=== PATIENT | female | born 1980 | race Caucasian/White ===

== ENCOUNTER 2021-05-18 10:47 | Outpatient (REF) | payer BC, MEDICAID, SELFPAY ==
--- NOTE | ~2021-05-18 | XR_ITS ---
EXAMINATION: XR FEMUR, LEFT CLINICAL INFORMATION: Displaced intertrochanteric fracture of left femur COMPARISON: None TECHNIQUE: AP and lateral views of the left femur were obtained. FINDINGS: There is a left femoral intramedullary nail and fixative screw in place with posttraumatic changes of the left proximal femur about the level of the trochanters. There is a presumed fragment of the greater trochanter located immediately cranial to the superior margin of the intramedullary nail. No new fractures are identified. The hip is in alignment. Soft tissues are otherwise unremarkable. XR/XR femur LT 2V IMPRESSION: Postsurgical changes relating to prior fixation of a left intertrochanteric femur fracture. No acute fracture identified.
--- NOTE | ~2021-05-18 | XR_ITS ---
EXAMINATION: XR PELVIS CLINICAL INFORMATION: Pain unspecified hip COMPARISON: Left femur radiographs obtained on the same day TECHNIQUE: AP view of the pelvis. FINDINGS: There are posttraumatic changes/deformity of the left proximal femur with soft tissue calcification medial to the lesser trochanter and a presumed fragment of the greater trochanter immediately cranial to the superior margin of the intramedullary nail. There is a tiny focus of calcification along the lateral superior margin of the left acetabulum. The hips are normally located. Pubic symphysis and sacroiliac joints are in alignment. Pelvic ring is maintained. No acute fractures identified. No other abnormal soft tissue calcification. XR/XR pelvis 1-2V IMPRESSION: Posttraumatic deformity/changes of the left proximal femur post prior fixation. No acute abnormality
== END 2021-05-18 10:48 | disposition home or self-care (01) ==
LOC: HO.HOSX 10:47
PROVIDERS: Visit Provider Orthopaedic Surgery
DX: M25.552 Pain in left hip (principal); S72.142A Displaced intertrochanteric fracture of left femur, initial encounter for closed fracture; X58.XXXA Exposure to other specified factors, initial encounter; Y93.9 Activity, unspecified; Y92.9 Unspecified place or not applicable; Y99.8 Other external cause status; M21.751 Unequal limb length (acquired), right femur; R26.9 Unspecified abnormalities of gait and mobility; Z88.8 Allergy status to other drugs, medicaments and biological substances; Z79.899 Other long term (current) drug therapy
CPT/HCPCS: 72170; 73552; 99202

== ENCOUNTER 2021-05-31 12:16 | Day surgery (SDC) | payer MEDICAID, SELFPAY ==
--- NOTE | 2021-05-30 09:07 | P.CONAN_ITS ---
Documented by User: Sherie Fletcher NP 05/30/21 09:08 HPI - Anesthesia Eval Consult details Narrative: 40yo F for Left Removal Orthopedic Hardware,femur *Multiple Allergies* PMFSH Active Problems Active Problems: All Active Problems (Updated 05/18/21 @ 11:07 by Omar Pizano MD) Fracture, intertrochanteric, left femur (Acute) Past Medical History Medical History (Updated 05/18/21 @ 11:07 by Omar Pizano MD) Femur fracture, right Social History Social History (Updated 05/18/21 @ 11:05 by Yessenia Butterfield RN) Patient Tobacco Use Status: Current everyday Tobacco user Tobacco use type: Cigarette Cigarette Packs Per Day: 0.5 Cigarettes Per Day: 10.0 Use of substances other than those prescribed or required for medical reasons: No Are you DNR?: No Advance Directives: No Advance Directives Information Provided: Yes Recently lost weight without trying: Yes How much weight loss: 2-13 pounds Current occupational status: unemployed Current occupation: Right handed Meds Allergies Allergy/AdvReac Type Severity Reaction Status Date / Time topiramate [From TOPAMAX] Allergy Severe Anaphylaxis Verified 05/31/21 13:10 hydrocodone [From VICODIN] Allergy Intermediate RASH Verified 05/31/21 13:08 oxycodone [OXYCODONE] Allergy Intermediate RASH Verified 05/31/21 13:10 barium sulfate AdvReac Mild mood Verified 05/31/21 13:10 disturbance varenicline [VARENICLINE] AdvReac Mild unk, mood Verified 05/31/21 13:10 disturbance Home Medications Medication Instructions Recorded Confirmed Last Taken Type citalopram 40 mg tablet (Celexa) 40 mg PO DAILY 05/18/21 05/18/21 Unknown History lorazepam 1 mg tablet (Ativan) 1 mg PO TID PRN 05/18/21 05/18/21 05/31/21 08:30 History melatonin 5 mg capsule mg PO DAILY cap 05/18/21 05/18/21 Unknown History Exam Exam Date and Time: May 30, [id number] Assessment and Plan Assessment Anesthesia Assessment: Chart Reviewed Documented by User: Milton Rivera MD 05/31/21 16:39 HPI - Anesthesia Eval Consult details Narrative: 40yo F for Left Removal Orthopedic Hardware,femur Charcot Ankita tooth disease , tingling , burning B/L LE , tremor UE RBBB *Multiple Allergies* [facility] Past Medical History Medical History (Updated 05/18/21 @ 11:07 by Omar Pizano MD) Femur fracture, right Family History Family history of problems with anesthesia: No Surgical History History of Problems with Anesthesia: No Social History Social History (Updated 05/18/21 @ 11:05 by Yessenia Butterfield RN) Patient Tobacco Use Status: Current everyday Tobacco user Tobacco use type: Cigarette Cigarette Packs Per Day: 0.5 Cigarettes Per Day: 10.0 Use of substances other than those prescribed or required for medical reasons: No Are you DNR?: No Advance Directives: No Advance Directives Information Provided: Yes Recently lost weight without trying: Yes How much weight loss: 2-13 pounds Current occupational status: unemployed Current occupation: Right handed Meds Allergies Allergy/AdvReac Type Severity Reaction Status Date / Time topiramate [From TOPAMAX] Allergy Severe Anaphylaxis Verified 05/31/21 13:10 hydrocodone [From VICODIN] Allergy Intermediate RASH Verified 05/31/21 13:08 oxycodone [OXYCODONE] Allergy Intermediate RASH Verified 05/31/21 13:10 barium sulfate AdvReac Mild mood Verified 05/31/21 13:10 disturbance varenicline [VARENICLINE] AdvReac Mild unk, mood Verified 05/31/21 13:10 disturbance Home Medications Medication Instructions Recorded Confirmed Last Taken Type citalopram 40 mg tablet (Celexa) 40 mg PO DAILY 05/18/21 05/18/21 Unknown History lorazepam 1 mg tablet (Ativan) 1 mg PO TID PRN 05/18/21 05/18/21 05/31/21 08:30 History melatonin 5 mg capsule mg PO DAILY cap 05/18/21 05/18/21 Unknown History Exam Airway Mallampati Class: IV TM Dist: >3cm Neck ROM: Full Loose/Missing/Broken Teeth: Yes (Crowns ) Heart: rrr Lungs: bl breath sounds Assessment and Plan Assessment Anesthesia Assessment: Anesthesia Plan Discussed Final Anesthetic Review Family History of Problems with Anesthesia: No History of Problems with Anesthesia: No NPO: Yes ASA Class: II Final Preanesthetic Review: Meds/Allgs Chart Reviewed, Consent Obtained/Reviewed and Anes Risks/Benef Reviewed Patient Risk: Intermediate Procedure Risk: Intermediate Anesthetic Plan Anesthetic Plan: GA Disposition: Standard PACU
[2021-05-31] VITALS (8 sets, daily range): BP systolic 86–117; BP diastolic 47–71; PULSE 77–86; RESP 16–19; TEMP 36.8–36.9; O2SAT 97–100; BMI 22.4
--- NOTE | ~2021-05-31 | FL_ITS ---
EXAMINATION: XR FLUOROSCOPY WITH IMAGES CLINICAL INFORMATION: Intraoperative fluoroscopy and C-arm views COMPARISON: None. TECHNIQUE: Fluoroscopy performed by Dr. Omar Pizano. Fluoroscopy time: 0.3 minutes DAP: 0.113 mGycm2 Images: 4 FINDINGS: Intraoperative fluoroscopy and C-arm views for ORIF left femur. Please refer to operative note for procedural detail.
[2021-05-31 12:45] LABS: UPreg QC Valid YES; Urine Pregnancy NEGATIVE (NEGATIVE)
[2021-05-31] MEDS: Lactated Ringers 1,000 ML 100 ML IVCONT (13:32)
--- NOTE | 2021-05-31 16:08 | P.BOP_ITS ---
Brief Operative Note Date of Service: 05/31/21 Pre-op diagnosis: Retained orthopaedic hardware left femur Post-op diagnosis: same Procedure: Removal of Hardware left femur Surgeon: Omar Pizano MD Anesthesia: GETA and local Was an Professional Volleyball Player used for this Procedure?: Yes Professional Volleyball Player: Sofy Esposito Estimated blood loss (mL): 50 IV fluids (mL): 500 Pathology: none sent Condition: stable Disposition: PACU
[2021-05-31] MEDS: traMADoL HCL 50 MG TABLET 25 MG PO (17:10)
--- NOTE | 2021-05-31 17:15 | PC.NURSE ---
1710 MEDICATED FOR PAIN. PATIENT TAKING PO FLUIDS. PATIENT MEDICATED PO TRAMADOL FOR PAIN REFUSING IV NARCOTICS AT THIS TIME
--- NOTE | 2021-06-06 16:06 | W.PM.OPN ---
Operative Note Operative Note Date of Service: 06/06/21 Narrative: Date of Service: 05/31/21 Pre-op diagnosis: Retained orthopaedic hardware left femur Post-op diagnosis: same Procedure: Removal of Hardware left femur Surgeon: Omar Pizano MD Anesthesia: GETA and local Was an Conservation Scientist used for this Procedure?: Yes Conservation Scientist: Sofy Esposito Estimated blood loss (mL): 50 IV fluids (mL): 500 Pathology: none sent Condition: stable Disposition: PACU Patient was brought to the operating room and placed supine on the surgical table. She was prepped and draped in standard sterile fashion and a time out was called to identify proper site, proper procedure and IV antibiotics per weight were administered. I began by identifying the distal 2 interlocking screws. A skin incision was made through the prior incision and the screw heads were easily identified and to screws removed without difficulty. I then repeated this process for the hip screw and the set screw proximally. Again small incisions were made through the prior incisions and a set screw was loosened with a flexible screwdriver and the hip screw was removed with the appropriate regional tanker truck driver. Once this was done I used a Raz tree to thread the nail and then the nail was backslapped without difficulty. I then irrigated copiously and closed the wounds with an absorbable suture and kar. Patient was placed in sterile dressing extubated brought to recovery room in a stable condition there were no known complications.
== END 2021-05-31 18:20 | disposition home or self-care (01) ==
LOC: HO.SSS 12:16
PROVIDERS: Nurse Practitioner; PCP Internal Medicine; Visit Provider Orthopaedic Surgery
PROC: (CPT 20680; principal; 2021-05-31 14:20)
DX: T84.84XA Pain due to internal orthopedic prosthetic devices, implants and grafts, initial encounter (principal); G89.18 Other acute postprocedural pain; M25.552 Pain in left hip; R26.89 Other abnormalities of gait and mobility; Y79.3 Surgical instruments, materials and orthopedic devices (including sutures) associated with adverse incidents; Y92.9 Unspecified place or not applicable; M21.70 Unequal limb length (acquired), unspecified site; Z79.899 Other long term (current) drug therapy; Z88.8 Allergy status to other drugs, medicaments and biological substances
CPT/HCPCS: 20680; 81025; J0131; J0690; J1100; J1170; J2250; J2405; J3010

== ENCOUNTER → 2021-06-05 09:50 | Outpatient (BNVA) | payer MEDICAID, SELFPAY | PROVIDERS: Visit Provider Physician Assistant | DX: S72.142D Displaced intertrochanteric fracture of left femur, subsequent encounter for closed fracture with routine healing (principal) | CPT/HCPCS: 99212 ==

== ENCOUNTER 2021-06-29 10:00 | Outpatient (RCR) | payer MEDICAID, SELFPAY ==
--- NOTE | 2021-06-05 13:19 | MHC.PT.EP ---
[facility] [place] Office [place] Office [place] Office [address] Eileen Padilla [address] [phone] F: [phone] F: [phone] F: [phone] F: [phone] Physical Therapy Plan of Care Date of Evaluation: Date of Surgery: 05/31/21 Diagnosis: S/P LEFT FEMUR HARDWARE REMOVAL Assessment: 40 YO FEMALE REF TO PT S/P LEFT FEMUR HARDWARE REMOVAL ON 05/31/21 AT [facility] [place]. Pt PRESENTING W JAY AXILLARY CRUTCHES- SHE RESIDES IN A MOBILE HOME AND IS CURRENTLY UNEMPLOYED. SHE HAS A H/O CHARCOT YEMI TOOTH DISEASE. OBJECTIVELY: Pt HAS (+) WEAKNESS IN LEFT LE AND LUMBOPLEVIC REGION, LIMITED AROM LEFT LE, HEALING INCISION LEFT LAT THIGH, AND PAIN IN LEFT HIP/ THIGH. FUNCTIONALLY, Pt IS LIMITED W WALKING, FUNCT SQUAT, (+) UEs COMPENSATION W TRANSFERS/ DECR LEs USE, AND DIFFIC W STAIR MGMT. Pt IS MOTIVATED FOR PT AND SHE WOULD BENEFIT FROM PT TO ADDRESS THE ABOVE FINDINGS/ STRENGTHENING, PAIN MGMT, DEV SELF- SX MGMT STRATEGIES. Frequency and Duration: The patient will be seen 2 x WK x 6 WKS Short Term Goals: *Pt'S LEFT HIP/ THIGH PAIN DECR TO 2-3/10 IN 2 WKS *Pt DEMON IMPROVED TRANSFERS AND BED MOB TECH W REDUCTION OF COMPENSATORY UEs IN 3 WKS *Pt DEMON IMPROVED LEFT KNEE,HIP, AND JAY ANKLE DF AROM IN 3 WKS * Pt DEMON IMRPOVED GAIT MECH , PROGR 2 CRUTCHES-> 1 , TO W/O ON LEVEL AND STAIRS IN 3 WKS Flag Signaler Goals: Pt INDEP W HEP PROGRESSION AND SELF-SX MGMT STRATEGIES IN 8 WKS Pt RESUME REG ADLs EVIDENT W IMPROVED LEFI SCORE BY 8-10 POINTS (AT EVAL 18/80) IN 8 WKS Pt INCR LE STRENGTH BY 1 GRADE IN 8 WKS Treatment Plan: Modalities to reduce pain, spasms and effusion. Manual therapy to restore motion and function. Therapeutic exercise to improve strength and flexibility. Neuromuscular re-education for posture and balance. Therapeutic activities to return to functional activities of daily living. Electronically signed by: Sharon Dalton PT Please sign and return to therapist. Thank you for your referral.
--- NOTE | 2021-11-30 09:43 | MHC.PT.DC ---
[facility] [place] Office [place] Office [place] Office [address] Eileen Padilla [address] [phone] F: [phone] F: [phone] F: [phone] F: [phone] Physical Therapy Discharge Report Diagnosis: S/P LEFT FEMUR HARDWARE REMOVAL Date of Surgery: 05/31/21 Date of Evaluation: 06/05/21 Date of Discharge: 07/13/21 Treatments to Date: 3 Cancellations to Date: No Shows to Date: Discharge Status: Discharge Summary: Pt did elect to find a PT provider with shorter commute. 06/29/21: Pt in a lot of pain after last visit. We reduced activity level and discussed responses to activities in depth today. 06/20/21: maintains motivation. still requires cues for stairs and amb to reduce quad avoidance tendencies. 06/15: excellent yayo for activities, Pt has some swelling of lateral distal thigh; incision appears WNL though arturo pocket of swelling noted and medial thigh ecchymosis also noted; ed on monitoring changes, IP. 06/08/21: significant education on importance of avoiding TKE throughout stance phase to engage quad. this will be essential as we progress to 1 crutch. HEP updated. 40 YO FEMALE REF TO PT S/P LEFT FEMUR HARDWARE REMOVAL ON 05/31/21 AT [facility] [place]. Pt PRESENTING W JAY AXILLARY CRUTCHES- SHE RESIDES IN A MOBILE HOME AND IS CURRENTLY UNEMPLOYED. SHE HAS A H/O CHARCOT YEMI TOOTH DISEASE. OBJECTIVELY: Pt HAS (+) WEAKNESS IN LEFT LE AND LUMBOPLEVIC REGION, LIMITED AROM LEFT LE, HEALING INCISION LEFT LAT THIGH, AND PAIN IN LEFT HIP/ THIGH. FUNCTIONALLY, Pt IS LIMITED W WALKING, FUNCT SQUAT, (+) UEs COMPENSATION W TRANSFERS/ DECR LEs USE, AND DIFFIC W STAIR MGMT. Pt IS MOTIVATED FOR PT AND SHE WOULD BENEFIT FROM PT TO ADDRESS THE ABOVE FINDINGS/ STRENGTHENING, PAIN MGMT, DEV SELF- SX MGMT STRATEGIES. Electronically signed by: Jose M Pierre, PT Please sign and return to therapist. Thank you for your referral.
== END 2021-11-30 09:43 | disposition home or self-care (01) ==
LOC: HO.PTCHIC 10:00
PROVIDERS: PCP Internal Medicine; Visit Provider Physician Assistant
DX: S72.142A Displaced intertrochanteric fracture of left femur, initial encounter for closed fracture (principal)
CPT/HCPCS: 97110; 97112; 97140; 97162; 97530

== ENCOUNTER → 2021-11-06 08:51 | Outpatient (BNVA) | payer MEDICAID, SELFPAY | PROVIDERS: PCP Internal Medicine; Visit Provider Orthopaedic Surgery | DX: S72.142D Displaced intertrochanteric fracture of left femur, subsequent encounter for closed fracture with routine healing (principal); M25.562 Pain in left knee; R26.9 Unspecified abnormalities of gait and mobility; Z98.890 Other specified postprocedural states; X58.XXXD Exposure to other specified factors, subsequent encounter | CPT/HCPCS: 99212 ==

== ENCOUNTER 2024-11-24 15:35 | Emergency (ER) | payer MEDICAID, SELFPAY ==
[2024-11-24] VITALS (9 sets, daily range): BP systolic 102–127; BP diastolic 44–63; PULSE 63–81; RESP 11–18; TEMP 36.5–36.6; O2SAT 96–98; BMI 31.4
--- NOTE | ~2024-11-24 | XR_ITS ---
CLINICAL HISTORY: trauma Radiographs of the left ankle, 3 views, 4 images Comparison: None available Findings: There is no fracture or dislocation. The ankle mortise is congruent. No degenerative change. Soft tissue swelling. Impression: No fracture. This document has been electronically signed by: Trini Echevarria MD on 11/24/2024 20:30:25
--- NOTE | ~2024-11-24 | XR_ITS ---
CLINICAL HISTORY: trauma Radiographs of the pelvis and left hip, 3 views Comparison: None available Findings: No acute fracture or dislocation. Remote fracture of the left proximal femur with ghost tracts from previously removed hardware. Heterotopic ossification. Mild degenerative change. Soft tissue swelling. Impression: No acute fracture. This document has been electronically signed by: Trini Echevarria MD on 11/24/2024 20:31:44
--- NOTE | ~2024-11-24 | CT_ITS ---
CLINICAL HISTORY: trauma CT head without contrast Comparison: None available Findings: No acute hemorrhage. No extra-axial fluid collection. No hydrocephalus, mass-effect or herniation. Shah-white differentiation is maintained. White matter is within normal limits for age. No acute orbital pathology. No acute soft tissue abnormality. No fracture. The visualized paranasal sinuses are predominantly clear. The mastoid air cells are clear. Impression: No acute findings. This document has been electronically signed by: Trini Echevarria MD on 11/24/2024 20:50:21
--- NOTE | ~2024-11-24 | XR_ITS ---
CLINICAL HISTORY: syncope Chest Radiographs, 2 views Comparison: None available Findings: No cardiomegaly. Normal mediastinal contours. No pneumothorax. No opacity. No pleural effusion. Normal upper abdomen. No acute fracture. Impression: No acute findings. This document has been electronically signed by: Trini Echevarria MD on 11/24/2024 20:33:08
--- NOTE | 2024-11-24 16:08 | ED.SYNCOPE ---
HPI - Syncope General Chief Complaint: Syncope Stated Complaint: Syncope Time Seen by Provider: 11/24/24 18:25 Source: patient, RN notes reviewed and old records reviewed Mode of arrival: ambulatory Limitations: no limitations History of Present Illness ED Provider: Shea HPI narrative: 44-year-old female with a past medical history significant for hypotension, left hip fracture presents for evaluation after a fall. The patient was visiting her fiance who was admitted upstairs. She was walking to the cafeteria. She reports that the room was spinning around her and she fell to the ground. She is unsure if she lost consciousness but landed on her left side. She has pain to her left hip, left ankle. She reports some left-sided chest pain and shortness of breath She is a smoker and a social drinker but reports that she does not drink in excess. She does not believe that she hit her head and denies any current headache or neck pain The pain to her left hip is 8/10 and stabbing. She reports that immediately after her fall she was unable to bear weight on the left side Related Data Home Medications ?Medication ?Instructions ?Recorded ?Confirmed citalopram 40 mg tablet (Celexa) 40 mg PO DAILY 05/18/21 05/18/21 lorazepam 1 mg tablet (Ativan) 1 mg PO TID PRN Anxiety 05/18/21 05/18/21 melatonin 5 mg capsule mg PO DAILY 05/18/21 05/18/21 Previous Rx's ?Medication ?Instructions ?Recorded tramadol 50 mg tablet 50 mg PO Q8H PRN pain 7 days #21 05/31/21 tabs hydromorphone 2 mg tablet 2 mg PO Q8H PRN pain 7 days #21 06/05/21 (Dilaudid) tabs cefuroxime axetil 250 mg tablet 250 mg PO Q12H #10 tabs 11/24/24 Allergies Allergy/AdvReac Type Severity Reaction Status Date / Time topiramate (From TOPAMAX) Allergy Severe Anaphylaxis Verified 11/24/24 16:07 hydrocodone (From VICODIN) Allergy Intermediate RASH Verified 11/24/24 16:07 oxycodone (OXYCODONE) Allergy Intermediate RASH Verified 11/24/24 16:07 barium sulfate AdvReac Mild mood Verified 11/24/24 16:07 disturbance varenicline (VARENICLINE) AdvReac Mild unk, mood Verified 11/24/24 16:07 disturbance Review of Systems Constitutional: Constitutional: Denies chills, Denies fever(s) and Denies headache(s) Eyes: Eyes: Denies blurry vision ENT: Reports vertigo, Reports dizziness and Denies headache(s) Cardiovascular: Cardiovascular: Reports chest pain, Reports chest pain at rest, Reports syncope and Reports dyspnea Respiratory: Respiratory: Denies cough and Reports dyspnea Gastrointestinal: Gastrointestinal: Denies abdominal pain, Denies nausea and Denies vomiting Musculoskeletal: Musculoskeletal: Denies back pain Neurologic: Reports vertigo, Reports dizziness, Reports syncope and Denies headache(s) [facility] Past Medical History Medical History Femur fracture, right Social History Social History Patient Tobacco Use Status: Current everyday Tobacco user Tobacco use type: Cigarette Cigarette Packs Per Day: 0.5 Cigarettes Per Day: 10.0 Smoked in Last 30 Days: No Use of substances other than those prescribed or required for medical reasons: No Advance Directives: No Advance Directives Information Provided: No Current occupational status: unemployed Current occupation: Right handed Physical Exam Vital Signs: Vital Signs: Last Vital Signs Temp 97.8 F 11/24/24 22:27 Pulse 71 11/24/24 22:27 Resp 11 L 11/24/24 22:27 BP 120/53 L 11/24/24 22:27 Pulse Ox 97 11/24/24 22:27 O2 Del Method Room Air 11/24/24 22:27 BMI result Body Mass Index 31.4 Const: General: healthy appearing, comfortable, no acute distress, alert and awake Nutritional Appearance: well nourished Orientation/consciousness: patient oriented x3 HEENT: Head: Yes normocephalic and Yes atraumatic Eyes: Eyelids: Yes eyelids normal Conjunctivae: conjunctivae normal Sclerae: sclerae normal Corneas: corneas normal Pupils: Equal, round and reactive pupils present EOM: EOMs intact bilaterally Neck: Neck: Yes full ROM Resp: Effort & Inspection: normal respiratory effort, able to speak in complete sentences, no audible wheezes and not labored Auscultation: clear to auscultation bilaterally Cardio: Rate: regular rate Rhythm: regular rhythm GI: Inspection: No distended Palpation (GI): Soft to palpation, not firm, nontender, no guarding and not rigid Skin: General skin exam: no rashes or lesions noted and elasticity normal Neuro: General: patient oriented x3 Cranial nerves: Yes CN's II-XII intact bilaterally, Yes Equal, round and reactive pupils present and Yes Bilaterally intact EOM present Cognition (Neuro): normal cognition Motor exam (neuro): 5/5 motor strength present throughout Coordination: [id number] test normal Course Course Course Narrative: This is an RME: Additional HPI, ROS, PE not included below will be deferred to primary provider. RME assessment and note performed by: Jo Ann Martinez PA-C This is a 26-mwxr-gzr-female, with a hx of anxiety, panic attacks, depression, who presents to the ER with complaints of two episodes of syncope today. no etoh or drug use. Reports that she had some chest pain which started today while in the waiting room. hx of RBBB. Plan: Labs, EKG, further ER eval needed Reevaluation(s) Reevaluation #1: Patient's workup largely unremarkable, repeat troponin was negative, she rules out for ACS with this and her nonischemic EKG. A D-dimer was within normal limits, less likely pulmonary embolism. She has not had any arrhythmias while on the front desk monitor. The patient is not orthostatic, she reports feeling much better after fluids and meclizine. She has been able to ambulate so commode without significant pain. I offered her crutches and she declines. Imaging did not show any traumatic injury. She will be referred to follow up with the PCP Time: 22:04 Reevaluation #2: The patient's urinalysis did show positive leukocytes with 3+ bacteria, white blood cells in the urine. She does complain of some burning that started today. We will treat with cefuroxime 250 mg b.i.d. x5 days. Time: 22:41 Medications Administered Discontinued Medications Generic Name Dose Route Start Last Admin Trade Name Freq PRN Reason Stop Dose Admin Sodium Chloride 1,000 mls @ 999 mls/hr 11/24/24 19:15 11/24/24 21:47 Ns IV 11/24/24 20:15 Infused .Q1H1M FRANKIE Infusion Meclizine HCl 50 mg 11/24/24 19:09 11/24/24 19:31 Meclizine Hcl 25 Mg Tablet PO 11/24/24 19:10 50 mg ONCE ONE Administration Medical Decision Making Medical Decision Making [facility] Narrative: 44-year-old female with past medical history significant for hypotension and previous left hip fracture presents for evaluation after a fall and questionable syncopal episode. She reports getting dizzy and describes room spinning prior to her fall. She has a history of vertigo that seemed to improve when she started taking Ativan for anxiety. The patient reports increased stress due to the recent passing of her mother and her 's current admission for a seizure. She complains of left-sided chest pain, her EKG is nondiagnostic but does show a right bundle branch block which the patient is aware of in his not new. Plan for x-rays of the left hip, left ankle, chest x-ray due to the syncopal episode. We will get labs including troponin and a dental troponin. A D-dimer was ordered. She has no risk factors for DVT or PE. However she reports that she was brought up in the [facility] system and does not know her family history. Her neuro exam is benign, I am not concerned about a CVA. We will treat her dizziness as peripheral vertigo which she has a history of with fluids, meclizine. It did or orthostatic vital signs Differential Diagnosis Differential Diagnoses: The differential diagnosis associated with the presentation includes Syncope Near-syncope Orthostasis ACS less likely Cardiac arrhythmia PE Dehydration Hip fracture Lab Data [facility] Lab Attestation statement: I reviewed the patient's lab results. No leukocytosis or significant anemia. Normal platelet count. No significant electrolyte abnormalities warranting dimension. Initial troponin negative, the patient is not 11/24/24 16:49 11/24/24 16:49 Labs: Lab Results 11/24/24 11/24/24 11/24/24 Range/Units 16:49 19:21 21:48 WBC 6.8 (4.8-10.8) X10*3/uL RBC 3.66 L (4.20-5.50) X10*6/uL Hgb 12.6 (12.0-16.0) g/dl Hct 35.9 L (37.0-47.0) % MCV 98.1 H (80.0-98.0) fL MCH 34.4 H (27.0-33.0) pg MCHC 35.1 H (31.0-35.0) g/dl RDW 13.3 (11.0-16.0) % Plt Count 253 (160-400) X10*3/uL MPV 9.5 (9.4-12.3) fL Immature Gran % (Auto) 0.3 (0.0-0.4) % Neut % (Auto) 54.4 (45-73) % Lymph % (Auto) 35.4 (20-40) % [place] % (Auto) 5.9 (2-11) % Eos % (Auto) 3.1 (0-4) % Baso % (Auto) 0.9 (0-2) % Lymph # (Auto) 2.4 (1.2-4.9) X10*3/uL [place] # (Auto) 0.4 (0.1-1.2) X10*3/uL Eos # (Auto) 0.2 (0.0-0.4) X10*3/uL Baso # (Auto) 0.1 (0.0-0.2) X10*3/uL Abs Immat Gran (auto) 0.02 (0.00-0.03) X10*3/uL Absolute Neuts (auto) 3.7 (2.0-8.3) x10*3/uL Absolute Nucleated RBC 0.000 (0.0-0.012) X10*3/uL Nucleated RBC % (auto) 0.0 (0.0-0.2) /100WBC D-Dimer High Sensitivty 174 NG/ML Sodium 141 (135-145) mmol/L Potassium 4.0 (3.3-5.1) mmol/L Chloride 108 (96-108) mmol/L Carbon Dioxide 24 (22-29) mmol/L Anion Gap 13 (12-20) BUN 14 (9-16) mg/dL Creatinine 0.92 (0.5-1.4) mg/dL Estim Creat Clear Calc 73.9 Estimated GFR > 60 Random Glucose 107 (60-115) mg/dL Calcium 9.2 (8.4-10.2) mg/dL Magnesium 2.3 (1.6-2.6) mg/dL Total Bilirubin 0.2 (0.0-1.0) mg/dL Direct Bilirubin < 0.2 (0.0-0.5) mg/dL AST 41 H (5-31) U/L ALT 36 H (0-31) U/L Alkaline Phosphatase 100 (39-117) U/L Troponin I High Sens < 2.7 < 2.7 (<3.5-17.0) ng/L Total Protein 7.1 (6.5-8.0) g/dL Albumin 4.3 (3.5-5.0) g/dL Lipase 38 (8-78) U/L Beta HCG, Quant < 2 mIU/mL Urine Color Yellow Urine Appearance Clear Urine pH 6.0 (5.0-9.0) Ur Specific [place] >= 1.030 H (1.005-1.025) Urine Protein 30 (1+) H (Neg-Trace) mg/dL Urine Glucose (UA) Negative (Negative) mg/dL Urine Ketones 15 (Negative) mg/dL Urine Blood Large (3+) H (Negative) Urine Nitrite Negative (Negative) Ur Leukocyte Esterase Small (1+) H (Negative) Urine RBC 3-5 H (0-2) /HPF Urine WBC 11-20 H (0-5) /HPF Ur Squamous Epith Cells 3-5 (0-2) /HPF Urine Bacteria 3+ (None Seen) Hyaline Casts 0-2 (0-2) /LPF Independent Interpretation I performed an independent interpretation of an: EKG (Normal sinus rhythm with a rate of [address] segment elevations or depressions. Incomplete right bundle-branch block which was previously documented. Nondiagnostic EKG) Radiology Impression Discussion of test interpretation with radiology: I have reviewed the radiologist's reading. Radiologist Impression: Findings: No acute hemorrhage. No extra-axial fluid collection. No hydrocephalus, mass-effect or herniation. Shah-white differentiation is maintained. White matter is within normal limits for age. No acute orbital pathology. No acute soft tissue abnormality. No fracture. The visualized paranasal sinuses are predominantly clear. The mastoid air cells are clear. Impression: No acute findings. This document has been electronically signed by: Trini Echevarria MD on 11/24/2024 20:50:21 Findings: No cardiomegaly. Normal mediastinal contours. No pneumothorax. No opacity. No pleural effusion. Normal upper abdomen. No acute fracture. Impression: No acute findings. This document has been electronically signed by: Trini Echevarria MD on 11/24/2024 20:33:08 Findings: No acute fracture or dislocation. Remote fracture of the left proximal femur with ghost tracts from previously removed hardware. Heterotopic ossification. Mild degenerative change. Soft tissue swelling. Impression: No acute fracture. This document has been electronically signed by: Trini Echevarria MD on 11/24/2024 20:31:44 Findings: There is no fracture or dislocation. The ankle mortise is congruent. No degenerative change. Soft tissue swelling. Impression: No fracture. This document has been electronically signed by: Trini Echevarria MD on 11/24/2024 20:30:25 Discharge Plan Discharge Clinical Impression: Syncope, Urinary tract infection Patient Disposition: Home, Self-Care Instructions: Syncope (ED) Additional Instructions: Your workup in the ER today was reassuring. This includes your blood work, EKG, head CT and x-rays. There was no significant injury noted with the imaging. I do recommend that you follow up with your primary doctor. Use you have any further episodes of syncope or near-syncope you should see a hydraulic lift operator Prescriptions: New cefuroxime axetil 250 mg tablet 250 mg PO Q12H Qty: 10 0RF No Action tramadol 50 mg tablet 50 mg PO Q8H PRN (Reason: pain) 7 Days Qty: 21 0RF Rx Instructions: Partial Fill upon patient request hydromorphone [Dilaudid] 2 mg tablet 2 mg PO Q8H PRN (Reason: pain) 7 Days Qty: 21 0RF lorazepam [Ativan] 1 mg tablet 1 mg PO TID PRN (Reason: Anxiety) citalopram [Celexa] 40 mg tablet 40 mg PO DAILY melatonin 5 mg capsule PO DAILY Print Language: Greek
--- NOTE | 2024-11-24 16:10 | ECG_ITS ---
Test Reason : syncope Blood Pressure : */* mmHG Vent. Rate : 78 BPM Atrial Rate : 78 BPM P-R Int : 162 ms QRS Dur : 98 ms QT Int : 394 ms P-R-T Axes : 78 34 33 degrees QTcB Int : 449 ms Normal sinus rhythm Low voltage QRS Incomplete right bundle branch block Nonspecific T wave abnormality Abnormal ECG When compared with ECG of 08-Sep-2019 14:27, Nonspecific T wave abnormality now evident in Lateral leads Referred By: Jo Ann Martinez Electronically Signed By: CELESTE ROBINS
[2024-11-24 16:56] LABS: MANUAL DIFF FLAG NO
[2024-11-24 16:57] LABS: Hematocrit 35.9 % (37.0-47.0); Hemoglobin 12.6 g/dl (12.0-16.0); Imm Gran Abs Auto 0.02 X10*3/uL (0.00-0.03); Imm Gran Pct Auto 0.3 % (0.0-0.4); Lymphocytes Absolute Auto 2.4 X10*3/uL (1.2-4.9); Mean Corpuscular HGB Conc 35.1 g/dl (31.0-35.0); Mean Corpuscular Hemoglobin 34.4 pg (27.0-33.0); Mean Corpuscular Volume 98.1 fL (80.0-98.0); NRBC Abs Auto 0.000 X10*3/uL (0.0-0.012); NRBC Pct Auto 0.0 /100WBC (0.0-0.2); Platelet Count 253 X10*3/uL (160-400); Red Blood Count 3.66 X10*6/uL (4.20-5.50); White Blood Count 6.8 X10*3/uL (4.8-10.8)
[2024-11-24 17:20] LABS: Alanine Aminotransferase 36 U/L (0-31); Albumin Level 4.3 g/dL (3.5-5.0); Alkaline Phosphatase 100 U/L (39-117); Anion Gap 13 (12-20); Aspartate Amino Transferase 41 U/L (5-31); Blood Urea Nitrogen 14 mg/dL (9-16); Calcium 9.2 mg/dL (8.4-10.2); Carbon Dioxide 24 mmol/L (22-29); Chloride 108 mmol/L (96-108); Creatinine Clr Calc Pharmacy 73.9; Estimated Glomerular Filt Rate > 60; Lipase 38 U/L (8-78); Magnesium 2.3 mg/dL (1.6-2.6); Potassium 4.0 mmol/L (3.3-5.1); Sodium 141 mmol/L (135-145); Total Protein 7.1 g/dL (6.5-8.0)
[2024-11-24 17:22] LABS: Troponin-I High Sensitivity < 2.7 ng/L (<3.5-17.0)
--- OUTSIDE RECORDS SUMMARY | 2024-11-24 19:19 | XMS_ITS | Clinical Summary ---
Author Organization [facility] Address [address] [place] [address] Phone Care Team Providers Care Compo Caster Name Role Phone Renetta Valdez MD Primary Care Provider Allergies Active Allergy Reactions Criticality Noted Date Comments Oxycodone Hives 07/08/2017 Oxycodone-Acetaminophen 06/06/2018 Topiramate 10/21/2017 Burninig all over the face. Throat swelled. Could not breathe well. Varenicline 06/06/2018 intolerable side effects Medications LORazepam (ATIVAN) 1 mg tablet Take 1 tablet (1 mg total) by mouth 1 (one) time each day if needed. Active melatonin 5 mg tablet Take 1 tablet (5 mg total) by mouth at bedtime. 02/08/2024 Active mirtazapine (REMERON) 45 mg tablet Take 1 tablet (45 mg total) by mouth at bedtime. 02/07/2024 Active citalopram (CeleXA) 40 mg tablet Take 1 tablet (40 mg total) by mouth 1 (one) time each day. Active multivitamin tablet Take 1 tablet by mouth 1 (one) time each day. 90 tablet 03/11/2024 Active disulfiram (ANTABUSE) 250 mg tablet Take 1 tablet (250 mg total) by mouth 1 (one) time each day for 14 days. 14 each 05/12/2024 Active Active Problems Problem Noted Date Diagnosed Date Alcohol dependence with unco [place]plicated [place] [place] [facility] 03/11/2024 Hypomagnesemia 03/11/2024 Macrocytosis 03/11/2024 Chest wall pain 03/11/2024 Gastroenteritis 03/11/2024 Qrwdjbd-Mglqu-Biaok disease 03/11/2024 [place]ol[place] [place] [facility] [place] 03/09/2024 Surgical History Surgery Date Site/Laterality Comments SECTION PROCEDURE: HISTORICAL ; COMMENT: x2 Medical History Medical History Date Comments S/p left hip fracture 10/07/2018 DX:S/p lef t hip fracture; COMMENT: S/p ORIF ETOH abuse Family History Medical History Relation Name Comments Alcohol/Drug Father Heart attack Father Alcohol/Drug Mother Heart attack Paternal Grandfather Relation Name Status Comments Father Mother Paternal Grandfather Social History Tobacco Use Types Packs/Day Years Used Date Smoking Tobacco: Every Day Cigarettes Last attempted to quit: 01/08/2009 Smokeless Tobacco: Never Alcohol Use Standard Drinks/Week Comments Yes 4 (1 standard drink = 0.6 oz pur e alcohol) Housing Instability Answer Date Recorde d Are you worried that in the next 2 months you may not have stable housing? Yes 03/09/2024 Food Access & Nutrition Answer Date Rec orded Do you have access to a vari ety of food including fruits and vegetables? No 03/09/2024 Access to Healthcare Answer Date Record ed Within the last 3 months, ho w many times did you visit the emergency department for your medical care? 0 03/09/2024 Health Literacy Answer Date Recorded How often do you need to hav e someone help you when you read instructions, pamphlets, or other written material from your doctor or pharmacy? Never 03/09/2024 Caregiver: How often do you need to have someone help you when you read instructions, pamphlets, or other written material from your doctor or pharmacy? Not on file 03/09/2024 Financial Risk Answer Date Recorded How hard is it for you to pa y for the very basics like food, housing, medical care, and air conditioning / heating? Somewhat hard 03/09/2024 Transportation Answer Date Recorded Has the lack of transportati on kept you from meetings, work, or from getting things needed for daily living? Yes Has the lack of transportati on kept you from medical appointments or from getting medications? Yes 03/09/2024 Social Isolation Answer Date Recorded How often do you feel lonely or isolated from those around you? Sometimes 03/09/2024 Food Risk Answer Date Recorded Within the past 12 months we worried whether our food would run out before we got money to buy more. Sometimes true 024 Within the past 12 months th e food we bought just didn't last and we didn't have money to get more. Sometimes true 03/09/2024 Dependent Care Answer Date Recorded Do you need help finding or paying for care for your loved ones. For example, child welfare social worker or elderly care for an older adult? No 03/09/2024 Education Answer Date Recorded Do you think completing more education or training, like finishing a GED, going to college, or learning a trade, would be helpful for you? No 03/09/2024 Employment and Income Answer Date Recor ded During the last four weeks, have you been actively looking for work? No 03/09/2024 Living Situation Answer Date Recorded What is your living situation? 1 Interpersonal Safety Answer Date Record ed Physical Abuse 03/09/2024 Verbal Abuse 03/09/2024 Comments No Sex and Gender Information Value Date Recorded Sex Assigned at Female 05/11/2024 8:50 PM EST Legal Sex Female 11:22 AM EST Gender Identity Female 05/11/2024 8:50 PM EST Sexual Orientation Straight 03/09/2024 5: 25 PM EST Obstetrics History Last Filed Vital Signs Vital Sign Reading Time Taken Comments Blood Pressure 117/71 05/11/2024 7:25 PM EST Pulse 82 05/11/2024 7:25 PM EST Temperature 36.7 C (98 F) 05/11/2024 7:25 PM EST Respiratory Rate 18 05/11/2024 7:25 PM EST Oxygen Saturation 97% 05/11/2024 7:25 PM EST Inhaled Oxygen Concentration - - Weight 63.5 kg (140 lb) 05/11/2024 7:25 PM EST Height 154.9 cm (5' 1 ) 05/11/2024 7:25 PM EST Body Mass Index 26.45 05/11/2024 7:25 PM EST Plan of Treatment Health Maintenance Due Date Last Done Comments Breast Cancer Screening 1982 Hepatitis A Vaccines (1 of 2 - Risk 2-dose series) 2001 Hepatitis B Vaccines (1 of 3 - 19+ 3-dose series) 2001 Pneumococcal Vaccine: Pediatrics (0 to 5 Years) and At-Risk Patients (6 to 49 Years) (1 of 2 - PCV) 2001 Cervical Cancer Screening: Pap Smear 08/24/2003 HPV Vaccines (2 - 3-dose series) 07/13/2008 06/15/2008 Cholesterol Screening (Lipid Panel) 02/06/2022 HIV Screening 02/06/2022 Hepatitis C Screening 02/06/2022 Depression Screening 03/11/2024 COVID-19 Vaccine ( - season) 2024 07/06/2021, 10/31/2020, 10/10/2020 Influenza Vaccine (#1) 2024 6, 03/12/2014, 12/05/2009, Additional history exists Social Influencers of Health Screening 03/09/2025 03/09/2024 DTaP,Tdap,and Td Vaccines (4 - Td or Tdap) 03/11/2025 03/11/2015, 03/14/2006, 03/14/2006 HIB Vaccines Aged Out No longer eligi ble based on patient's age to complete this topic IPV Vaccines Aged Out No longer eligi ble based on patient's age to complete this topic MMR Vaccines Aged Out No longer eligi ble based on patient's age to complete this topic Meningococcal ACWY Vaccine Aged Out N o longer eligible based on patient's age to complete this topic Meningococcal B Vaccine Aged Out No l onger eligible based on patient's age to complete this topic RSV Immunization Patients Under 20 months Aged Out No longer eligible based on patient's age to complete this topic Varicella Vaccines Aged Out No longer eligible based on patient's age to complete this topic Insurance [address] [place] [id number] [place]ICA[place] - [place] Advance Directives * Full Code - Default (Latest Code Status on File) Date Activated Date Inactivated Comments 03/09/2024 11:47 AM 03/11/2024 3:28 PM This is ord er is used when code status has not been discussed with the patient, or code status is otherwise unknown/unconfirmed To update the patient's code status, place a code status order. Do not modify or discontinue any currently active code status orders. Care Teams Compo Caster Relationship Specialty Start Date End Date Renetta Valdez MD [address] [place] [address] PCP - General Internal Medicine 03/09/24
[2024-11-24 19:35] LABS: D Dimer High Sensitivity 174 NG/ML
[2024-11-24 19:54] LABS: Troponin-I High Sensitivity < 2.7 ng/L (<3.5-17.0)
--- NOTE | 2024-11-24 19:54 | PC.NURSE ---
Patient away for CT scan. Will obtain IV access and medicate as ordered upon return.
[2024-11-24 22:05] LABS: Appearance Urine Clear; Glucose Urine UA Negative (Negative); PH 6.0 (5.0-9.0); Specific Gravity - Urine >= 1.030 (1.005-1.025); UMIC TRIGGER UACC YES
[2024-11-24 22:21] LABS: UACC Culture Trigger YES
== END 2024-11-24 22:45 | disposition home or self-care (01) ==
PROVIDERS: Physician Assistant; Physician Assistant Medical; Emergency Provider Student in an Organized Health Care Education/Training Program; PCP Nurse Practitioner Family
DX: N39.0 Urinary tract infection, site not specified (principal); R55 Syncope and collapse; S09.90XA Unspecified injury of head, initial encounter; W19.XXXA Unspecified fall, initial encounter; Y93.89 Activity, other specified; Y92.232 Corridor of hospital as the place of occurrence of the external cause; Y99.9 Unspecified external cause status; M25.572 Pain in left ankle and joints of left foot; M25.552 Pain in left hip; R06.02 Shortness of breath; R07.9 Chest pain, unspecified
CPT/HCPCS: 36415; 70450; 71046; 73502; 73610; 80048; 80076; 81001; 81003; 83690; 83735; 84484; 84702; 85025; 85379; 87086; 93005; 96360; 99284; 99285

== ENCOUNTER → 2024-11-24 16:10 | Outpatient (BNV) | payer MEDICAID, SELFPAY | PROVIDERS: Emergency Provider Student in an Organized Health Care Education/Training Program; PCP Nurse Practitioner Family; Visit Provider Internal Medicine | DX: I45.10 Unspecified right bundle-branch block (principal) | CPT/HCPCS: 93010 ==

== ENCOUNTER → 2024-11-24 19:08 | Outpatient (BNV) | payer MEDICAID, SELFPAY | PROVIDERS: Emergency Provider Student in an Organized Health Care Education/Training Program; PCP Nurse Practitioner Family; Visit Provider Radiology Diagnostic Radiology | DX: R55 Syncope and collapse (principal); M61.452 Other calcification of muscle, left thigh; R22.42 Localized swelling, mass and lump, left lower limb | CPT/HCPCS: 70450; 71046; 73502; 73610 ==